=== PATIENT | female | born 1965 | race Caucasian/White ===

== ENCOUNTER 2019-11-09 08:34 | Outpatient (CLI) | payer BC, SELFPAY ==
--- NOTE | ~2019-11-09 | MR_ITS ---
EXAMINATION: MR abdomen wo/w con DATE: 11/09/2019 10:13 INDICATION: Right renal neoplasm presenting with right-sided abdominal pain TECHNIQUE: Magnetic resonance imaging (MRI) of the abdomen was performed without and with 15 mL Multi [place] intravenous contrast. Sequences included coronal T2-weighted SS-FSE, coronal and axial FS 2D-F IESTA, axial STIR FSE, axial T2-weighted SS-FSE, axial T2-weighted FS SS-FSE, axial diffusion-weighte d SE, axial dual-echo T1-weighted FSPGR, and axial and coronal T1-weighted LAVA. Postcontrast axial T 1-weighted LAVA images were obtained in a time course. Postcontrast coronal T1-weighted LAVA images w ere obtained. COMPARISON: None. FINDINGS: Heart size is normal. No pericardial or pleural effusion. Somewhat heterogeneous hepatic steatosis wi th signal dropout on opposed phase images. Status post cholecystectomy. No intra or extrahepatic bili sherrie ductal dilation. Spleen, pancreas and bilateral adrenal glands are normal. Some with heterogeneou s avid enhancement of a 1.7 cm mass at the anterior lower pole of the right kidney consistent with re nal cell carcinoma. There are few bilateral T2 hyperintense nonenhancing renal cysts the largest julienne uring 1.2 cm the left kidney. Visualized portions of the bowels including the appendix are normal. No pathologically enlarged abdominal lymphadenopathy. 5.2 cm T2 hyperintense nonenhancing right adnexal cyst which is seen on the coronal images. Normal bone marrow signal throughout. IMPRESSION: 1. 1.7 cm hyperenhancing right renal mass consistent with renal cell carcinoma. Differential would ho wever also include isolated thyroid metastasis which could also present as a hyperenhancing mass. Reviewed, dictated and finalized at location A. [employer] IMPRESSION: 1. 1.7 cm hyperenhancing right renal mass consistent with renal cell carcinoma. Differential would however also include isolated thyroid metastasis which coul d also present as a hyperenhancing mass.
[2019-11-09 09:35] LABS: Estimated Glomerular Filt Rate > 60
== END 2019-11-09 08:35 | disposition home or self-care (01) ==
PROVIDERS: PCP Pediatrics; Visit Provider Pediatrics
DX: D41.01 Neoplasm of uncertain behavior of right kidney (principal)
CPT/HCPCS: 36415; 74183; A9577

== ENCOUNTER 2019-11-16 11:53 | Outpatient (CLI) | payer BC, SELFPAY ==
--- NOTE | ~2019-11-16 | XR_ITS ---
XR abdomen/kub 1V DATE: 11/16/2019 12:22 INDICATION: Kidney calculus TECHNIQUE: AP projection, 2 views COMPARISON: 11/09/2019 MRI abdomen: 1.7 cm hyperenhancing right renal mass lesion consistent with renal carcinoma was reported FINDINGS: There is an approximately 2 mm calcification overlying the mid left kidney. No other appare nt urinary tract calcification is identified. Surgical clips, right upper quadrant, consistent with cholecystectomy. The psoas shadows are intact. No evidence of bowel obstruction. Included skeletal structures are unremarkable. IMPRESSION: Approximately 2 mm left renal probable calcified calculus Status post cholecystectomy This examination is not sensitive for detection of previously MRI reported 1.7 cm hyperenhancing righ t renal mass lesion consistent with renal carcinoma Reviewed, dictated and finalized at Location A. Reviewed, dictated and finalized at location A. IMPRESSION: Approximately 2 mm left renal probable calcified calculus Status post cholecystectomy This examination is not sensitive for detection of previously MRI reported 1.7 cm hyperenhancing right renal mass lesion consistent with renal carcinoma
== END 2019-11-16 11:54 | disposition home or self-care (01) ==
LOC: ANHIMG 12:04
PROVIDERS: Visit Provider Urology
DX: N20.0 Calculus of kidney (principal); Z90.49 Acquired absence of other specified parts of digestive tract
CPT/HCPCS: 74018

== ENCOUNTER 2019-11-23 02:19 | Day surgery (SDC) | payer BC, SELFPAY ==
[2019-11-19 09:11] VITALS: BMI 34.0
[2019-11-23] VITALS (7 sets, daily range): BP systolic 109–152; BP diastolic 76–97; PULSE 64–98; RESP 11–20; TEMP 36.3–36.7; O2SAT 98–100; BMI 34.7
--- NOTE | ~2019-11-23 | XR_ITS ---
XR abdomen/kub 1V DATE: 11/23/2019 08:31 INDICATION: Lithotripsy. Kidney calculus. TECHNIQUE: AP projection, 2 views COMPARISON: 11/16/2019 KUB FINDINGS: Again noted is a small calcification overlying the upper pole of the left kidney. Status post cholecystectomy. No evidence of bowel obstruction. The psoas shadows are intact. No visceromegaly is detected. IMPRESSION: Approximately 2 mm calcified calculus of upper pole of left kidney Status post cholecystectomy Reviewed, dictated and finalized at Location A. Reviewed, dictated and finalized at location D.
--- NOTE | 2019-11-23 09:21 | WPDHPUPDATE1 ---
History and Physical Update Update Date/Time: 11/23/19 09:21 History and Physical has been reviewed, including an updated exam of the patient. There are NO changes in the patient's condition. Risks, benefits, and alternatives have been discussed and questions answered. Patient agrees to proceed with procedure.
[2019-11-23] MEDS: LACTATED RINGERS 1,000 ML 30 ML IV CONT (09:45)
--- NOTE | 2019-11-23 09:55 | WPDANESEPPF ---
Anes - Initial Pre Proc Eval Procedure: Operation Date: 11/23/19 10:30 Proposed Procedures p Left Renal Extracorporeal Shock Wave Lithotripsy - Lionel Billingsley MD Date/Time: 11/23/19 09:55 Surgeon: Lionel Billingsley MD Pre Op Diagnosis: left renal kidney stones Patient Data Age: 54 Gender: F Height: 5 ft 1 in Weight: 83.3 kg Last Vital Signs Temp 36.7 C 11/23/19 08:30 Pulse 73 11/23/19 08:30 Resp 18 11/23/19 08:30 BP 148/85 H 11/23/19 08:30 Pulse Ox 98 11/23/19 08:30 Allergies Allergy/AdvReac Type Severity Reaction Status Date / Time ampicillin [From Unasyn] AdvReac severe Verified 11/19/19 09:12 itching hydrocodone AdvReac Itching Verified 11/19/19 09:12 sulbactam [From Unasyn] AdvReac severe Verified 11/19/19 09:12 itching Home Medications Medication Instructions Recorded Confirmed Type L.acid-L.casei-B.bif-B.jessica-FOS 1 cap PO DAILY 11/19/19 11/19/19 History [Probiotic Blend] ezetimibe [Zetia] 10 mg PO DAILY 11/19/19 11/19/19 History isosorbide mononitrate 30 mg PO DAILY 11/19/19 11/19/19 History lisinopril-hydrochlorothiazide 1 tablet PO DAILY 11/19/19 11/19/19 History metoprolol succinate 50 mg PO DAILY 11/19/19 11/19/19 History multivitamin 1 tablet PO DAILY 11/19/19 11/19/19 History simvastatin 40 mg PO DAILY 11/19/19 11/19/19 History spironolactone [Aldactone] 25 mg PO DAILY 11/19/19 11/19/19 History Patient hx anesthesia problems: none Family hx anesthesia problems: none PMFSH Past Medical History Medical History (Updated 11/23/19 @ 09:58 by Gavin Nelson MD) CAD (coronary artery disease) Hyperlipidemia Hypertension Renal cancer Thyroid cancer TIA (transient ischemic attack) Anes - Eval Final PreProcedure Day of Procedure 11/23/19 09:55 Patient weight: obese Heart: regular rate and rhythm Lungs: clear to auscultation Airway: Mallampati scale class 1 Neurological: alert and oriented Last oral intake: >/= 8 hours ASA classification: III Emergent: no Anesthetic plan: proceed Anesthesia type and monitoring: general LMA and standard monitoring Informed Consent: The patient's anesthetic plan and its attendant risks and benefits were discussed with the patient/family/POA. Questions were solicited and answers provided to the satisfaction of the patient/family/POA.
--- NOTE | 2019-11-23 10:01 | SUR.PREOP ---
0845 Pt states she has had PCN in the past without problems
[2019-11-23] MEDS: ceFAZolin 2 GM/D5W 50 ML 2 GM/50 ML BAG IVPB (10:55)
--- NOTE | 2019-11-23 11:41 | PM.PROC ---
Procedure Note - Detailed Date of procedure: 11/23/19 Pre-op diagnosis: left renal kidney stones Post-op diagnosis: same Procedure performed: Lithotripsy of left renal calculus 6 mm Description of procedure: Patient was taken the operative suite correctly identified. The left renal calculus was seen in both planes. Two thousand five hundred shocks were given. Patient tolerated procedure well without any complications taken recovery stable condition. She will follow-up about 10 days with a KUB. Anesthesia: GLMA Surgeon: Lionel Billingsley MD Drains: No Packing: No Pathology: none sent Complications: No immediate complications Condition: stable Disposition: PACU
--- NOTE | 2019-11-23 12:24 | SUR.PHASEI ---
1224; PT AWAKE AND ALERT. DENIES PAIN OR NAUSEA. READY TO SEE FAMILY.
--- NOTE | 2019-11-23 13:33 | SUR.PHASEII ---
1318; PT WALKED TO BATHROOM. GAIT STEADY. VOIDED. STATES ARGUETA COLORED.
== END 2019-11-23 13:20 | disposition home or self-care (01) ==
PROVIDERS: Visit Provider Urology
PROC: (CPT 50590; principal; 2019-11-23 10:30)
DX: N20.0 Calculus of kidney (principal); I10 Essential (primary) hypertension; E78.5 Hyperlipidemia, unspecified; I25.10 Atherosclerotic heart disease of native coronary artery without angina pectoris; Z86.73 Personal history of transient ischemic attack (TIA), and cerebral infarction without residual deficits; Z85.850 Personal history of malignant neoplasm of thyroid; E66.9 Obesity, unspecified; Z68.34 Body mass index [BMI] 34.0-34.9, adult; Z79.82 Long term (current) use of aspirin
CPT/HCPCS: 50590; 74018; J0690; J1100; J2250; J2405; J2704; J3010; J7120

== ENCOUNTER 2019-12-03 10:18 | Outpatient (CLI) | payer BC, SELFPAY ==
--- NOTE | ~2019-12-03 | XR_ITS ---
EXAMINATION: XR abdomen/kub 1V INDICATION: Ocular cysts of the kidney TECHNIQUE: Supine views of the abdomen were obtained on 2 radiographs. COMPARISON: 0829 hours and 11/16/2019 FINDINGS: A 4 mm stone projects in the lower pole of the left kidney. Cholecystectomy clips are prese nt in the right upper quadrant. There are phleboliths of the pelvis. The bowel gas pattern is normal. IMPRESSION: 1. 4 mm stone in the lower pole of the left kidney. Reviewed, dictated and finalized at location A.
== END 2019-12-03 10:19 | disposition home or self-care (01) ==
PROVIDERS: Visit Provider Urology
DX: N20.0 Calculus of kidney (principal)
CPT/HCPCS: 74018

== ENCOUNTER 2020-02-20 09:58 | Outpatient (CLI) | payer BC, SELFPAY ==
--- NOTE | ~2020-02-20 | CT_ITS ---
EXAMINATION: CT abdomen pelvis wo/w con DATE: 02/20/2020 10:51 INDICATION: Right kidney mass TECHNIQUE: Computed tomography (CT) of the abdomen was performed without intravenous contrast. CT of the abdomen and pelvis was then performed with a total of 100 mL Omnipaque 350 intravenous contrast. The dose-length product (DLP) was 1584.92 mGy-cm. Automated exposure control and iterative reconstruc tion technique were employed. COMPARISON: 02/07/2019; MRI, 11/09/2019 FINDINGS: The lung bases are clear. The heart size is normal. The gallbladder is surgically absent. T here is mild pneumobilia. The liver, spleen, pancreas, and adrenal glands are normal. There is a 2.1 cm enhancing mass in the anterior aspect of the right kidney lower pole, slightly increased in size p reviously measuring 1.7 cm. Cysts of the left kidney measure up to 1 cm. No pathologically enlarged a bdominal or pelvic lymph nodes are identified. There is a stable 5.2 cm cyst of the right ovary. Ther e is no free intraperitoneal gas or evidence of bowel obstruction. There is mild lumbar spondylosis. IMPRESSION: 1. Slight interval increase in size of the previously described right kidney mass, likely renal cell carcinoma. Reviewed, dictated and finalized at location A. IMPRESSION: 1. Slight interval increase in size of the previously described right kidney ma ss, likely renal cell carcinoma.
[2020-02-20 10:28] LABS: Estimated Glomerular Filt Rate > 60
== END 2020-02-20 09:59 | disposition home or self-care (01) ==
LOC: ANHIMG 10:00
PROVIDERS: Visit Provider Urology
DX: N28.89 Other specified disorders of kidney and ureter (principal)
CPT/HCPCS: 36415; 74178; Q9967

== ENCOUNTER 2020-04-18 11:23 | Outpatient (CLI) | payer BC, SELFPAY ==
--- NOTE | ~2020-04-18 | CT_ITS ---
EXAMINATION: CT abdomen pelvis wo/w con DATE: 04/18/2020 12:19 INDICATION: Known right renal mass with new onset abdominal pain. Nephrolithiasis. TECHNIQUE: Computed tomography (CT) of the abdomen and pelvis was performed without and with 100 mL O mnipaque-350 intravenous contrast utilizing a standard renal mass protocol. Automated exposure contro l and iterative reconstruction technique were employed. The dose-length product was 1800.36 mGy-cm. COMPARISON: 02/20/2020 FINDINGS: Lung bases are clear. Heart size is normal. No pericardial or pleural effusion. Small amount of pneum obilia likely related to prior cholecystectomy and thoracotomy with surgical clips at the gallbladder fossa. Liver is otherwise normal. Spleen, pancreas and bilateral adrenal glands are normal. 2.1 cm e nhancing mass at the anterior lower pole of the right kidney consistent with renal cell carcinoma. Th ere are couple approximately 5 mm macroscopic fat attenuation lesions, one at the upper pole of the r ight and one at the lower pole of the left kidneys consistent with of the left kidney consistent with angiomyolipomas. 1 cm nonenhancing cyst at the lower pole of the left kidney. [address] one in the upper pole of the left kidney and a few additional tiny densities in both kidneys which ar e too small to measure likely representing additional renal stones. No hydronephrosis or stones seen along the course of the ureters. No abnormal bowel wall thickening or obstruction. Appendix is normal . 5.3 cm right adnexal cyst. The uterus is not identified and has likely been surgically resected. Bl adder is normal. No free intraperitoneal gas or fluid. No pathologically enlarged abdominal or pelvic lymphadenopathy. Mild scattered degenerative skeletal changes. IMPRESSION: 1. Tiny bilateral nonobstructing renal stones the largest measuring 2 mm and the left kidney. 2. 2.1 cm enhancing right renal mass consistent with renal cell carcinoma. 3. 5.3 cm right adnexal cyst. 4. 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 Multiple angiomyolipomas can be seen in the setting of tuberous sclerosis. Reviewed, dictated and finalized at location A. IMPRESSION: 1. Tiny bilateral nonobstructing renal stones the largest measuring 2 mm and th e left kidney. 2. 2.1 cm enhancing right renal mass consistent with renal cell carcinoma. 3. 5.3 cm right adnexal cyst. 4. 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 Multiple angiom yolipomas can be seen in the setting of tuberous sclerosis.
[2020-04-18 12:10] LABS: Estimated Glomerular Filt Rate > 60
== END 2020-04-18 11:24 | disposition home or self-care (01) ==
LOC: ANHIMG 11:33
PROVIDERS: Visit Provider Nurse Practitioner Family
DX: C64.1 Malignant neoplasm of right kidney, except renal pelvis (principal); R10.11 Right upper quadrant pain; N20.0 Calculus of kidney; D35.01 Benign neoplasm of right adrenal gland
CPT/HCPCS: 36415; 74178; Q9967

== ENCOUNTER 2020-05-27 10:09 | Outpatient (CLI) | payer BC, SELFPAY ==
[2020-05-27 11:47] LABS: Basophils Absolute Auto 0.1 K/mm3 (0.0-0.1); Basophils Percent Auto 0.9 % (0.2-1.2); Eosinophils Absolute Auto 0.1 K/mm3 (0-0.3); Eosinophils Percent Auto 1.3 % (0-4.4); Hematocrit 44.8 % (37.0-47.0); Hemoglobin 15.1 g/dL (12.0-15.0); Immature Granulocyte Absolute 0.03 K/mm3 (0.00-0.031); Immature Granulocyte Percent A 0.3 % (0-0.5); Lymphocytes Absolute Auto 2.82 K/mm3 (0.9-3.2); Lymphocytes Percent Auto 30.3 % (18.3-44.2); Mean Corpuscular HGB Conc 33.7 g/dl (32-36); Mean Corpuscular Hemoglobin 29.8 pg (26-34); Mean Corpuscular Volume 88.5 fl (80-100); Mean Platelet Volume 11.3 fl (7.4-10.4); Monocytes Absolute Auto 0.7 K/mm3 (0.1-0.6); Monocytes Percent Auto 7.3 % (2.6-8.5); Neutrophils Absolute Auto 5.6 K/mm3 (1.3-6.7); Neutrophils Percent Auto 59.9 % (45.5-73.1); Platelet Count Result 242 k/mm3 (150-375); Red Blood Count 5.06 M/mm3 (4.2-5.4); Red Cell Distribution Width 11.9 % (11.5-14.5); White Blood Count 9.3 K/mm3 (4.5-10.0)
[2020-05-27 11:53] LABS: INR 1.1; Prothrombin Time 13.9 Seconds (11.1-14.7)
[2020-05-27 11:54] LABS: Partial Thromboplastin Time 27.5 SECONDS (22.3-36.8)
[2020-05-27 12:51] LABS: Alanine Aminotransferase 37 U/L (4-35); Albumin Level 4.5 g/dL (3.5-5.1); Alkaline Phosphatase 68 U/L (38-126); Anion Gap 7 mmol/L (8-16); Aspartate Amino Transferase 32 U/L (14-36); Bilirubin,Total 1.1 mg/dL (0.2-1.3); Blood Urea Nitrogen 21 mg/dL (7-17); Calcium 9.6 mg/dL (8.4-10.2); Carbon Dioxide 29 mmol/L (22-30); Chloride 101 mmol/L (98-107); Estimated Glomerular Filt Rate 58; Glucose 107 mg/dL (65-105); Potassium 4.4 mmol/L (3.4-5.0); Sodium 137 mmol/L (137-145)
== END 2020-05-27 10:10 | disposition home or self-care (01) ==
LOC: ANHSURGERY 10:12
PROVIDERS: Visit Provider Urology
DX: C64.9 Malignant neoplasm of unspecified kidney, except renal pelvis (principal)
CPT/HCPCS: 36415; 80053; 85025; 85610; 85730; 87086

== ENCOUNTER 2020-06-07 01:08 | Outpatient (CLI) | payer BC, SELFPAY ==
[2020-06-07 17:59] LABS: SARS-CoV-2 RNA PCR Negative
== END 2020-06-07 01:09 | disposition home or self-care (01) ==
LOC: ANHCOVIDDT 01:09
PROVIDERS: Visit Provider Urology
DX: Z01.812 Encounter for preprocedural laboratory examination (principal); Z20.828 Contact with and (suspected) exposure to other viral communicable diseases
CPT/HCPCS: 87635; C9803; U0003

== ENCOUNTER 2020-06-10 16:09 | Inpatient (IN) | payer BC, SELFPAY ==
[2020-05-27 10:31] VITALS: BMI 35.9
[2020-05-27 11:16] VITALS: BP 142/80; PULSE 64; RESP 18; TEMP 36.9; O2SAT 99
--- NOTE | 2020-06-08 10:26 | WPDANESEPP ---
Anes - Eval Pre Procedure Procedure: Operation Date: 06/10/20 07:30 Proposed Procedures p Robotic Assisted Right Partial Nephrectomy - Lionel Billingsley MD Date/Time: 06/08/20 10:26 Pre Op Diagnosis: Right Renal Mass Patient Data Age: 55 Gender: F Height: 1.55 m Weight: 86.3 kg Last Vital Signs Temp 36.9 C 05/27/20 11:16 Pulse 64 05/27/20 11:16 Resp 18 05/27/20 11:16 BP 142/80 H 05/27/20 11:16 Pulse Ox 99 05/27/20 11:16 Allergies Allergy/AdvReac Type Severity Reaction Status Date / Time ampicillin [From Unasyn] AdvReac severe Verified 05/27/20 10:24 itching hydrocodone AdvReac Itching Verified 05/27/20 10:22 sulbactam [From Unasyn] AdvReac severe Verified 05/27/20 10:24 itching vancomycin AdvReac Itching Verified 05/27/20 10:24 Home Medications Medication Instructions Recorded Confirmed Type ezetimibe [Zetia] 10 mg PO QAM 11/19/19 05/27/20 History isosorbide mononitrate 30 mg PO QAM 11/19/19 05/27/20 History lisinopril-hydrochlorothiazide 1 tablet PO QAM 11/19/19 05/27/20 History metoprolol succinate 50 mg PO QAM 11/19/19 05/27/20 History simvastatin 40 mg PO HS 11/19/19 05/27/20 History spironolactone [Aldactone] 25 mg PO QAM 11/19/19 05/27/20 History amlodipine 5 mg PO QAM 05/27/20 05/27/20 History aspirin 81 mg PO DAILY 05/27/20 05/27/20 History Patient hx anesthesia problems: none Family hx anesthesia problems: none PMFSH Past Medical History Medical History CAD (coronary artery disease) Hyperlipidemia Hypertension Renal cancer Thyroid cancer TIA (transient ischemic attack) Social History Social History Smoking status: Never smoker Substance use: never Spiritual care concerns: No Exam Day of Procedure 06/08/20 10:26
--- NOTE | 2020-06-09 11:49 | WPDANESEPPF ---
Anes - Initial Pre Proc Eval Procedure: Operation Date: 06/10/20 07:30 Proposed Procedures p Robotic Assisted Right Partial Nephrectomy - Lionel Billingsley MD Date/Time: 06/09/20 11:49 Surgeon: Lionel Billingsley MD Pre Op Diagnosis: Right Renal Mass Patient Data Age: 55 Gender: F Height: 1.55 m Weight: 86.3 kg Last Vital Signs Temp 36.9 C 05/27/20 11:16 Pulse 64 05/27/20 11:16 Resp 18 05/27/20 11:16 BP 142/80 H 05/27/20 11:16 Pulse Ox 99 05/27/20 11:16 Allergies Allergy/AdvReac Type Severity Reaction Status Date / Time ampicillin [From Unasyn] AdvReac severe Verified 05/27/20 10:24 itching hydrocodone AdvReac Itching Verified 05/27/20 10:22 sulbactam [From Unasyn] AdvReac severe Verified 05/27/20 10:24 itching vancomycin AdvReac Itching Verified 05/27/20 10:24 Home Medications Medication Instructions Recorded Confirmed Type ezetimibe [Zetia] 10 mg PO QAM 11/19/19 05/27/20 History isosorbide mononitrate 30 mg PO QAM 11/19/19 05/27/20 History lisinopril-hydrochlorothiazide 1 tablet PO QAM 11/19/19 05/27/20 History metoprolol succinate 50 mg PO QAM 11/19/19 05/27/20 History simvastatin 40 mg PO HS 11/19/19 05/27/20 History spironolactone [Aldactone] 25 mg PO QAM 11/19/19 05/27/20 History amlodipine 5 mg PO QAM 05/27/20 05/27/20 History aspirin 81 mg PO DAILY 05/27/20 05/27/20 History Patient hx anesthesia problems: none Family hx anesthesia problems: none [facility] Past Medical History Medical History (Updated 06/10/20 @ 06:43 by Preston Brink DO) CAD (coronary artery disease) mild - see on cath years ago. No intervention necessary. Negative stress test 05/23/2020 Carotid stenosis 65% occlusion on left side. No intervention deemed necessary at this point, just monitoring. Hyperlipidemia Hypertension Renal cancer Thyroid cancer TIA (transient ischemic attack) Social History Social History Smoking status: Never smoker Alcohol use details: FEW DRINKS/YEAR Substance use: never Living arrangements: with family Spiritual care concerns: No Anes - Eval Final PreProcedure Day of Procedure 06/09/20 11:49 Patient weight: obese Heart: regular rate and rhythm Lungs: clear to auscultation and normal air movement Airway: Mallampati scale class II Neurological: alert and oriented Last oral intake: >/= 8 hours ASA classification: III Emergent: no Anesthetic plan: proceed Anesthesia type and monitoring: general ETT and standard monitoring Informed Consent: The patient's anesthetic plan and its attendant risks and benefits were discussed with the patient/family/POA. Questions were solicited and answers provided to the satisfaction of the patient/family/POA.
[2020-06-10] VITALS (14 sets, daily range): BP systolic 98–148; BP diastolic 59–80; PULSE 54–98; RESP 10–20; TEMP 36.4–37.3; O2SAT 95–100
--- NOTE | ~2020-06-10 | CT_ITS ---
EXAMINATION: CTA chest PE protocol DATE: 06/13/2020 10:17 INDICATION: Postoperative shortness of breath and chest pain. TECHNIQUE: Computed tomography (CT) pulmonary angiogram of the chest was performed with 100 mL Omnipa que-350 intravenous contrast. Additional 3D reconstructions utilizing coronal maximum intensity proje ction (MIP) were performed. Automated exposure control and iterative reconstruction technique were em ployed. The dose-length product was 844.73 mGy-cm. COMPARISON: None FINDINGS: Excellent contrast opacification of the pulmonary arteries. There is mild streak artifact from dense contrast in the superior vena cava and right atrium. Mild scattered respiratory motion artifact which does not significantly limit evaluation. Lung volumes are small. Small bilateral pleural effusions w ith dependent atelectasis in the bilateral lower lobes, right greater than left. Heart size is normal . No pericardial effusion. Thoracic aorta is normal in caliber with no dissection. No pathologically enlarged thoracic lymphadenopathy. Postoperative changes recent partial nephrectomy along the anterio r margin of the lower pole of the right kidney. The cephalad tip of a surgical drain is seen in the r egion of Morison's pouch. Cholecystectomy clips the gallbladder fossa consistent with prior cholecyst ectomy. Small amount of likely postoperative gas and fluid in the right upper quadrant of the abdomen . Mild thoracic spondylosis. IMPRESSION: 1. No pulmonary embolism. 2. Small lung volumes with small bilateral pleural effusions and dependent compressive atelectasis in the bilateral lower lobes. 3. Postoperative changes of partial right nephrectomy. Reviewed, dictated and finalized at location A. IMPRESSION: 1. No pulmonary embolism. 2. Small lung volumes with small bilateral pleural effusions and dependent comp ressive atelectasis in the bilateral lower lobes. 3. Postoperative changes of partial right nephrectomy.
[2020-06-10] MEDS: LACTATED RINGERS 1,000 ML 30 ML IV CONT ×2 (06:57→13:48)
--- NOTE | 2020-06-10 07:00 | WPDHPUPDATE1 ---
History and Physical Update Update Date/Time: 06/10/20 07:00 History and Physical has been reviewed, including an updated exam of the patient. There are NO changes in the patient's condition. Risks, benefits, and alternatives have been discussed and questions answered. Patient agrees to proceed with procedure. Proceed with robotic right partial nephrectomy
[2020-06-10] MEDS: ceFAZolin 2 GM/D5W 50 ML 2 GM/50 ML BAG IVPB (07:30)
[2020-06-10] MEDS: HEMOSTATIC MATRIX (SURGIFLO with THROMBIN) KIT 1 KIT XX (11:26)
[2020-06-10] MEDS: ceFAZolin SODIUM 1 GM VIAL IV PUSH (13:00)
--- NOTE | 2020-06-10 13:22 | P.OP_ITS ---
Procedure Note - Detailed Date of procedure: 06/10/20 Pre-op diagnosis: Right Renal Mass Post-op diagnosis: same Procedure performed: Robotic assisted right partial nephrectomy Description of procedure: Patient is taken the operative suite and correctly identified. Once anesthesia was obtained she was placed in the Kube disposition right side up. [place] catheter had been placed. She was prepped and draped usual sterile fashion. All pressure points had been padded and she was been secured nicely. An OG had been placed as well as an axillary roll. The incision was made just lateral to the umbilicus and carried down to the rectus fascia. Veress needle was inserted in the abdomen was insufflated 15 mmHg pressure. Camera port trocar was placed in direct vision. We then placed our working ports in the appropriate locations. Two working ports were then placed for the assistance. And we eventually needed a 5 mm port to secure the liver. The robot was docked. Started by reflecting the colon medially and Coke arise in the duodenum. We identified the ureter and lifted the kidney off the psoas muscle. We traced the ureter up to the renal pelvis area. The hilar area was identified. The artery was located fairly well posterior to the renal vein. We placed a vessel loop around that. We are unable to get a vessel loop around the vein at this time. We then went ahead and freed up the kidney and opened wrote his fascia. Tumor was visualized. It had quite a bit of fat around it. All this was then removed. The tumor was demarcated using ultrasound. It was noted that the tumor was very near to the hilar area where the renal pelvis was. There also was a vein that was exiting the kidney just inferior to the renal mass. Once things were demarcated we went ahead and placed bulldogs on the renal artery and vein. We then went ahead and excised the tumor circumferentially. It appeared to have a nice margin. We then over sewed vessel using V lock suture. We closed the capsule using 0 Vicryl. There appeared to be good hemostasis at termination procedure. We placed to seal, Surgicel, and FloSeal over the close capsular area. We then reapproximated anterior [place] fascia. A Tony-Nagel drain was then placed through the 2nd port site. This was secured. All lap, needle counts was correct. The specimen had been placed in an Endo-Catch bag. The robot was undocked and the specimen was then brought out through midline incision. The midline incision was then closed using 0 Vicryl. Subcuticular stitches were then placed. Patient tolerated procedure well without any complications and was taken recovery room stable condition. It should be noted that the gonadal vessel was transected and clipped. Anesthesia: GETA Surgeon: Lionel Billingsley MD Estimated blood loss (mL): 500 Drains: Yes Packing: No Pathology: yes Complications: No immediate complications Condition: stable Disposition: PACU
[2020-06-10] MEDS: fentaNYL CITRATE INJ (*CRX) 100 MCG/2 ML VIAL 25 MCG IV PUSH ×8 (13:59→15:21)
--- NOTE | 2020-06-10 15:53 | ADMGEN ---
This patient, Sofya Daigle, was admitted to -. Patient/family oriented to hospital policies and general routines including ID bracelet, bed and alarms, visiting hours, pain management, procedures, bathroom and other care routines, personal items, smoking policy, room service/diet, and visiting hours. Valuables list has been completed. Information on how to activate the Rapid Response Team has been discussed. Patient/Family are encouraged to report perceived risks to care and to ask questions if they do not understand what they are told or what they should do.
[2020-06-10 16:41] LABS: Hematocrit 34.8 % (37.0-47.0); Hemoglobin 11.7 g/dL (12.0-15.0)
[2020-06-10] MEDS: DEXTROSE 5%/LACTATED RINGERS 1,000 ML 150 ML IV CONT (16:49)
[2020-06-10] MEDS: DOCUSATE SODIUM 100 MG CAPSULE PO (16:51)
[2020-06-10 16:54] LABS: Anion Gap 8 mmol/L (8-16); Blood Urea Nitrogen 20 mg/dL (7-17); Calcium 8.3 mg/dL (8.4-10.2); Carbon Dioxide 26 mmol/L (22-30); Chloride 103 mmol/L (98-107); Estimated CRCL calculation 53 ml/min; Estimated Glomerular Filt Rate 52; Glucose 151 mg/dL (65-105); Potassium 4.8 mmol/L (3.4-5.0); Sodium 137 mmol/L (137-145)
[2020-06-10] MEDS: MORPHINE SULFATE (*CRX) 2 MG/ML INJ 1 MG IV PUSH (17:34)
[2020-06-10] MEDS: ONDANSETRON INJ 4 MG/2 ML VIAL IV PUSH (18:40)
[2020-06-10] MEDS: HYDROmorphone HCL INJ (*CRX) 1 MG/ML SYR 0.5 MG IV PUSH (20:28)
[2020-06-10] MEDS: SIMVASTATIN 20 MG TABLET 40 MG PO (21:39)
[2020-06-11] VITALS (10 sets, daily range): BP systolic 100–145; BP diastolic 58–71; PULSE 62–103; RESP 16–20; TEMP 36.8–37.7; O2SAT 92–99
[2020-06-11] MEDS: HYDROmorphone HCL INJ (*CRX) 1 MG/ML SYR 0.5 MG IV PUSH ×3 (00:22→09:19)
[2020-06-11] MEDS: DEXTROSE 5%/LACTATED RINGERS 1,000 ML 150 ML IV CONT ×4 (00:29→21:28)
[2020-06-11 06:30] LABS: Basophils Absolute Auto 0.1 K/mm3 (0.0-0.1); Basophils Percent Auto 0.3 % (0.2-1.2); Eosinophils Absolute Auto 0.1 K/mm3 (0-0.3); Eosinophils Percent Auto 0.7 % (0-4.4); Hematocrit 31.4 % (37.0-47.0); Hemoglobin 10.6 g/dL (12.0-15.0); Immature Granulocyte Absolute 0.09 K/mm3 (0.00-0.031); Immature Granulocyte Percent A 0.6 % (0-0.5); Lymphocytes Absolute Auto 1.19 K/mm3 (0.9-3.2); Lymphocytes Percent Auto 7.4 % (18.3-44.2); Mean Corpuscular HGB Conc 33.8 g/dl (32-36); Mean Corpuscular Hemoglobin 29.4 pg (26-34); Mean Platelet Volume 11.1 fl (7.4-10.4); Monocytes Absolute Auto 1.4 K/mm3 (0.1-0.6); Monocytes Percent Auto 8.7 % (2.6-8.5); Neutrophils Absolute Auto 13.2 K/mm3 (1.3-6.7); Neutrophils Percent Auto 82.3 % (45.5-73.1); Platelet Count Result 185 k/mm3 (150-375); Red Blood Count 3.61 M/mm3 (4.2-5.4); Red Cell Distribution Width 11.8 % (11.5-14.5)
[2020-06-11 06:42] LABS: Anion Gap 8 mmol/L (8-16); Blood Urea Nitrogen 16 mg/dL (7-17); Carbon Dioxide 25 mmol/L (22-30); Chloride 101 mmol/L (98-107); Estimated CRCL calculation 58 ml/min; Estimated Glomerular Filt Rate 58; Glucose 142 mg/dL (65-105); Potassium 4.3 mmol/L (3.4-5.0); Sodium 134 mmol/L (137-145)
--- NOTE | 2020-06-11 07:58 | WPDUROPN2 ---
Progress Note: A&P Assessment and Plan (1) Right renal mass: Code(s): N28.89 - Other specified disorders of kidney and ureter Status: Acute Assessment and Plan: Postop day 1. White count slightly elevated at 16,000 thousand. Will continue to monitor. He will increase activity and encourage incentive spirometer. Hemodynamically stable. Subjective Subjective Date/Time Seen: 06/11/20 07:58 Post Op day: 1 (Robotic assisted right partial nephrectomy) Principal diagnosis: Right renal mass Interval history: Postoperative day 1. Sofya overall is doing well but does complain of some right flank discomfort. Review of Systems Review of Systems: All systems reviewed & are unremarkable except as noted in HPI and below Exam Const: General: uncomfortable HENMT: General nose exam: Normal nares present Resp: Effort & Inspection: normal respiratory effort Cardio: Rhythm: regular rhythm GI: Other: Abdomen soft nontender nondistended Urinary Catheter: Urinary Catheter: patent and draining and urine clear Skin: General skin exam: normal color Neuro: Speech: normal speech Objective Data Vital Signs Vital Signs: Vital Signs - 24 hr 06/10/20 13:48 06/10/20 14:00 06/10/20 14:15 Temperature 37.3 C Pulse Rate 63 60 63 Respiratory Rate 10 L 11 L 11 L Blood Pressure 98/62 L 112/72 109/69 Pulse Oximetry 100 99 95 06/10/20 14:30 06/10/20 14:45 06/10/20 15:00 Temperature Pulse Rate 77 65 60 Respiratory Rate 11 L 12 10 L Blood Pressure 114/79 131/73 131/73 Pulse Oximetry 98 97 95 06/10/20 15:15 06/10/20 15:38 06/10/20 15:53 Temperature 36.4 C 36.4 C Pulse Rate 80 70 68 Respiratory Rate 17 16 16 Blood Pressure 124/72 112/59 L 108/59 L Pulse Oximetry 100 100 100 06/10/20 16:23 06/10/20 17:45 06/10/20 17:51 Temperature 36.4 C 36.6 C Pulse Rate 72 78 Respiratory Rate 16 17 Blood Pressure 106/60 133/73 Pulse Oximetry 99 100 100 06/10/20 22:00 06/11/20 02:00 06/11/20 05:00 Temperature 37.3 C 36.8 C 37.7 C H Pulse Rate 98 98 Respiratory Rate 20 16 Blood Pressure 148/64 H 112/58 L Pulse Oximetry 98 98 06/11/20 06:00 Temperature 37.2 C Pulse Rate 103 H Respiratory Rate 20 Blood Pressure 145/65 H Pulse Oximetry 99 Intake/Output Intake/Output: Intake & Output 06/08/20 06/09/20 06/10/20 06/11/20 23:59 23:59 23:59 23:59 Intake Total 900 1075 Output Total 490 1600 Balance 410 -525 Meds/Results Medications: Active Medications Generic Name Dose Route Start Last Admin Trade Name Freq PRN Reason Stop Dose Admin Hydrocodone Bitart/Acetaminophen 1 tab 06/11/20 05:00 [place] 5-325 Mg PO Q4H PRN Pain Rated 1-3 Hydrocodone Bitart/Acetaminophen 2 tab 06/11/20 05:00 [place] 5-325 Mg PO Q4H PRN Pain Rated 4-6 Amlodipine Besylate 5 mg 06/11/20 09:00 Norvasc PO QAM [facility] Cephalexin HCl 500 mg 06/11/20 18:00 Keflex Capsule PO Q6HR GUNNER Docusate Sodium 100 mg 06/10/20 17:00 06/10/20 16:51 Colace Capsule PO 100 mg BID GUNNER Administration Hydrochlorothiazide 12.5 mg 06/11/20 09:00 Hydrochlorothiazide PO 07/11/20 09:01 QAM GUNNER Hydromorphone HCl 0.5 mg 06/10/20 15:38 06/11/20 04:18 Dilaudid Inj IV PUSH 0.5 mg Q4H PRN Administration Pain Rated 7-10 Dextrose/Lactated Ringer's 1,000 mls @ 150 mls/hr 06/10/20 15:38 06/11/20 00:29 Dextrose 5%/Lactated Ringers IV CONT 150 mls/hr .Q6H40M GUNNER Administration Cefazolin Sodium 1 gm in 50 mls @ 100 mls/hr 06/10/20 21:00 06/11/20 05:12 Ancef 1 Gm/D5w 50 Ml Pm IVPB 06/11/20 13:29 100 mls/hr Q8H GUNNER Administration Isosorbide Mononitrate 30 mg 06/11/20 09:00 Imdur PO QAM GUNNER Lisinopril 10 mg 06/11/20 09:00 Prinivil PO 07/11/20 09:01 QAM GUNNER Metoprolol Succinate 50 mg 06/11/20 09:00 Toprol Xl PO QAM GUNNER Morphine Sulfate 1 mg 06/10/20 15:38 06/10/20 17:34 Morphine Sul
--- NOTE | 2020-06-11 08:41 | WPDANESPN ---
Anes - Prog Note Post-Op Date/Time: 06/11/20 08:41 Cardiovascular status: normal Respiratory status: normal Airway patency: baseline Mental status: baseline Post-Op hydration status: normal Vital Signs: Last Vital Signs Temp 37.2 C 06/11/20 06:00 Pulse 103 H 06/11/20 06:00 Resp 20 06/11/20 06:00 BP 145/65 H 06/11/20 06:00 Pulse Ox 99 06/11/20 06:00 Pain Score (VAS): 0 I/O: Intake & Output 06/10/20 06/11/20 06/11/20 23:59 07:59 15:59 Intake Total 250 2125 Output Total 350 1635 Balance -100 490 Laboratory Tests 06/11/20 06:01 06/11/20 06:01 06/10/20 06/10/20 06/11/20 16:36 16:36 06:01 WBC 16.0 H RBC 3.61 L Hgb 11.7 L D 10.6 L Hct 34.8 L 31.4 L MCV 87.0 MCH 29.4 MCHC 33.8 RDW 11.8 Plt Count 185 MPV 11.1 H Immature Gran % (Auto) 0.6 H Neut % (Auto) 82.3 H Lymph % (Auto) 7.4 L [place] % (Auto) 8.7 H Eos % (Auto) 0.7 Baso % (Auto) 0.3 Lymph # (Auto) 1.19 [place] # (Auto) 1.4 H Eos # (Auto) 0.1 Baso # (Auto) 0.1 Abs Immat Gran (auto) 0.09 H Absolute Neuts (auto) 13.2 H Absolute Nucleated RBC 0.0 Nucleated RBC % 0.0 Sodium 137 Potassium 4.8 Chloride 103 Carbon Dioxide 26 Anion Gap 8 BUN 20 H Creatinine 1.10 H Estim Creat Clear Calc 53 Estimated GFR 52 L Glucose 151 H Calcium 8.3 L 06/11/20 06:01 WBC RBC Hgb Hct MCV MCH MCHC RDW Plt Count MPV Immature Gran % (Auto) Neut % (Auto) Lymph % (Auto) [place] % (Auto) Eos % (Auto) Baso % (Auto) Lymph # (Auto) [place] # (Auto) Eos # (Auto) Baso # (Auto) Abs Immat Gran (auto) Absolute Neuts (auto) Absolute Nucleated RBC Nucleated RBC % Sodium 134 L Potassium 4.3 Chloride 101 Carbon Dioxide 25 Anion Gap 8 BUN 16 Creatinine 1.00 Estim Creat Clear Calc 58 Estimated GFR 58 L Glucose 142 H Calcium 8.0 L Post-procedural complaints: none Patient Feedback: Patient satisfied with anesthetic care.
[2020-06-11] MEDS: ONDANSETRON INJ 4 MG/2 ML VIAL IV PUSH (09:25)
[2020-06-11] MEDS: DOCUSATE SODIUM 100 MG CAPSULE PO ×2 (10:17→17:33)
[2020-06-11] MEDS: ISOSORBIDE MONONITRATE 30 MG TAB.ER.24H PO (10:18)
[2020-06-11] MEDS: SPIRONOLACTONE 25 MG TABLET PO (10:18)
[2020-06-11] MEDS: hydroCHLOROthiazide 12.5 MG CAPSULE PO (10:19)
[2020-06-11] MEDS: METOPROLOL SUCCINATE EXT REL 50 MG TABCR PO (10:19)
[2020-06-11] MEDS: lisinopriL 10 MG TABLET PO (10:20)
[2020-06-11] MEDS: amLODIPine BESYLATE 5 MG TABLET PO (10:20)
[2020-06-11] MEDS: HYDROcodone/acetaminophen (*CRX) 5-325 MG TABLET 2 TAB PO ×3 (13:17→21:27)
[2020-06-11] MEDS: CEPHALEXIN 500 MG CAPSULE PO (17:33)
[2020-06-11] MEDS: SIMVASTATIN 20 MG TABLET 40 MG PO (21:28)
[2020-06-12] MEDS: CEPHALEXIN 500 MG CAPSULE PO ×5 (00:16→23:37)
[2020-06-12] MEDS: HYDROcodone/acetaminophen (*CRX) 5-325 MG TABLET 2 TAB PO ×3 (02:10→20:31)
[2020-06-12] MEDS: DEXTROSE 5%/LACTATED RINGERS 1,000 ML 150 ML IV CONT (04:09)
[2020-06-12 06:00] VITALS: BP 116/58; PULSE 90; RESP 20; TEMP 37.2; O2SAT 98
[2020-06-12 06:49] LABS: Hematocrit 27.2 % (37.0-47.0); Hemoglobin 8.9 g/dL (12.0-15.0); Mean Corpuscular HGB Conc 32.7 g/dl (32-36); Mean Corpuscular Hemoglobin 29.6 pg (26-34); Mean Corpuscular Volume 90.4 fl (80-100); Mean Platelet Volume 11.3 fl (7.4-10.4); Platelet Count Result 162 k/mm3 (150-375); Red Blood Count 3.01 M/mm3 (4.2-5.4); Red Cell Distribution Width 11.9 % (11.5-14.5); White Blood Count 13.3 K/mm3 (4.5-10.0)
[2020-06-12 07:13] LABS: Anion Gap 3 mmol/L (8-16); Blood Urea Nitrogen 11 mg/dL (7-17); Calcium 8.1 mg/dL (8.4-10.2); Carbon Dioxide 33 mmol/L (22-30); Chloride 98 mmol/L (98-107); Estimated CRCL calculation 49 ml/min; Estimated Glomerular Filt Rate 47; Glucose 136 mg/dL (65-105); Potassium 3.8 mmol/L (3.4-5.0); Sodium 134 mmol/L (137-145)
[2020-06-12] MEDS: HYDROcodone/acetaminophen (*CRX) 5-325 MG TABLET 1 TAB PO (07:41)
--- NOTE | 2020-06-12 07:55 | WPDUROPN2 ---
Progress Note: A&P Assessment and Plan (1) Renal cell carcinoma: Code(s): C64.9 - Malignant neoplasm of unspecified kidney, except renal pelvis Status: Acute Additional Plan Postoperative day 2. Robotic assisted right partial nephrectomy. Doing much better today. Vital signs are stable and afebrile. Remove Montgomery this morning. Most likely remove MATTHEW at lunch time. Increase ambulation. Possible discharge home later today or in a.m.. Pathology revealed renal cell carcinoma with negative margins. Discussed with Sofya today. Subjective Subjective Date/Time Seen: 06/12/20 07:55 Post Op day: 2 (Robotic assisted right partial nephrectomy) Principal diagnosis: renal cell carcinoma Interval history: postoperative day 2. Doing much better. White count has improved to 13,000 thousand. Hemoglobin slightly decreased to the 0.9. Hemodynamically stable. Right flank pain has decreased. Review of Systems Review of Systems: All systems reviewed & are unremarkable except as noted in HPI and below Exam Const: General: comfortable Eyes: General: appearance normal, both eyes and all related structures Resp: Effort & Inspection: normal respiratory effort and able to speak in complete sentences Cardio: Rate: regular rate GI: Inspection: non-distended GI Palp: Yes Soft to palpation and No Guarding due to palpation present (GI) Objective Data Vital Signs Vital Signs: Vital Signs - 24 hr 06/11/20 09:23 06/11/20 10:19 06/11/20 11:32 Temperature 36.9 C Pulse Rate 90 100 Respiratory Rate 18 Blood Pressure 138/71 Pulse Oximetry 99 96 06/11/20 14:00 06/11/20 22:00 06/11/20 22:31 Temperature 37.4 C 37.5 C Pulse Rate 96 87 62 Respiratory Rate 18 16 Blood Pressure 111/59 L 100/60 Pulse Oximetry 93 94 92 06/12/20 06:00 Temperature 37.2 C Pulse Rate 90 Respiratory Rate 20 Blood Pressure 116/58 L Pulse Oximetry 98 Intake/Output Intake/Output: Intake & Output 06/09/20 06/10/20 06/11/20 06/12/20 23:59 23:59 23:59 23:59 Intake Total 900 5765 1455 Output Total 490 4705 40 Balance 410 1060 1415 Meds/Results Medications: Active Medications Generic Name Dose Route Start Last Admin Trade Name Freq PRN Reason Stop Dose Admin Hydrocodone Bitart/Acetaminophen 1 tab 10/07/20 05:00 06/12/20 07:41 [place] 5-325 Mg PO 1 tab Q4H PRN Administration Pain Rated 1-3 Hydrocodone Bitart/Acetaminophen 2 tab 06/11/20 05:00 06/12/20 02:10 Hydrocodone/Acetaminophen (*Crx) 5-325 Mg Tablet PO 2 tab Q4H PRN Administration Pain Rated 4-6 Amlodipine Besylate 5 mg 06/11/20 09:00 06/11/20 10:20 Norvasc PO 5 mg QAM GUNNER Administration Cephalexin HCl 500 mg 06/11/20 18:00 06/12/20 06:37 Keflex Capsule PO 500 mg Q6HR GUNNER Administration Docusate Sodium 100 mg 06/10/20 17:00 06/11/20 17:33 Colace Capsule PO 100 mg BID GUNNER Administration Hydrochlorothiazide 12.5 mg 06/11/20 09:00 06/11/20 10:19 Hydrochlorothiazide PO 07/11/20 09:01 12.5 mg QAM GUNNER Administration Hydromorphone HCl 0.5 mg 06/10/20 15:38 06/11/20 09:19 Dilaudid Inj IV PUSH 0.5 mg Q4H PRN Administration Pain Rated 7-10 Dextrose/Lactated Ringer's 1,000 mls @ 150 mls/hr 06/10/20 15:38 06/12/20 06:39 Dextrose 5%/Lactated Ringers IV CONT 150 mls/hr .Q6H40M GUNNER Infusion Isosorbide Mononitrate 30 mg 06/11/20 09:00 06/11/20 10:18 Imdur PO 30 mg QAM GUNNER Administration Lisinopril 10 mg 06/11/20 09:00 06/11/20 10:20 Prinivil PO 07/11/20 09:01 10 mg QAM GUNNER Administration Metoprolol Succinate 50 mg 06/11/20 09:00 06/11/20 10:19 Toprol Xl PO 50 mg QAM GUNNER Administration Morphine Sulfate 1 mg 06/10/20 15:38 06/10/20 17:34 Morphine Sulfate Inj (*Crx) IV PUSH 1 mg Q2H PRN Administration Pain Rated 4-6 Naloxone HCl 0.1 mg 06/10/20 15:38 Narcan IV PUSH Q2M PRN Opiate Reversal Ondansetr
[2020-06-12 08:00] VITALS: BP 104/66; PULSE 90; RESP 20; O2SAT 92
[2020-06-12 09:03] VITALS: O2SAT 92
[2020-06-12] MEDS: SODIUM CHLORIDE 0.9% IV 1,000 ML 999 ML IV CONT (09:15)
[2020-06-12] MEDS: METOPROLOL SUCCINATE EXT REL 50 MG TABCR PO (09:30)
--- NOTE | 2020-06-12 11:42 | PM.IMCN ---
Assessment and Plan Assessment and plan (1) Hypertension: Code(s): I10 - Essential (primary) hypertension Status: Acute Assessment and Plan: blood pressure low this a.m. and responded to fluid bolus. thought secondary to recent surgery and possibly some blood loss. 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 monitor pressure. Patient has a blood pressure cuff at home and will be able to monitor when she is discharged which I anticipate will probably be tomorrow (2) Renal cell carcinoma: Code(s): C64.9 - Malignant neoplasm of unspecified kidney, except renal pelvis Status: Acute Assessment and Plan: pathology of lesion displays containment within the kidney and margins free of disease (3) Hyperlipidemia: Code(s): E78.5 - Hyperlipidemia, unspecified Status: Acute Assessment and Plan: continue her statin and ezetimibe. (4) DVT prophylaxis: Code(s): Z29.9 - Encounter for prophylactic measures, unspecified Status: Acute Assessment and Plan: mechanical per urology HPI Data of Consult Consult date: 06/12/20 Requesting Physician: Lionel Billingsley MD Primary Care Provider: Chuck Belle Consult Narrative Narrative: Date of visit 06/12 1130 Sofya Daigle is a 55 year old hypertensive female who underwent robotic assisted partial nephrectomy for renal cell mass right kidney 06/10. This a.m. prior to taking her medications her systolic pressure was in the 90s and she was feeling weak and lightheaded. She has had hypertension for number of years and had a preop stress test with her clubhouse manager 2 weeks prior to surgery which was reportedly normal. She denies any chest pain palpitation or shortness of breath. At present time after IV hydration and holding most of her antihypertensives she feels much better Review of Systems Review of Systems: Narrative: constitutional she said she has gained about 15-20 lb over the last several months with inactivity with the Covid pandemic and not working Eye no double vision scotoma mouth no pharyngitis laryngitis pulmonary no shortness breath wheezing or cough CV no palpitations or chest pain and recent negative stress test GI no melena hematochezia diarrhea no dysuria no hematuria Montgomery catheter in place muscle skeletal no particular joint discomfort integument no skin breakdown rashes neuropsych no seizures no syncope [facility] Past Medical History Medical History (Updated 06/12/20 @ 11:54 by Jim Read MD) CAD (coronary artery disease) mild - see on cath years ago. No intervention necessary. Negative stress test 05/23/2020 Carotid stenosis 65% occlusion on left side. No intervention deemed necessary at this point, just monitoring. Hyperlipidemia Hypertension Renal cancer Thyroid cancer TIA (transient ischemic attack) Ulnar nerve entrapment at elbow Surgical History Surgical History (Updated 06/12/20 @ 11:54 by Jim Read MD) H/O arthroscopic knee surgery H/O hysterectomy for benign disease History of cholecystectomy History of thyroidectomy, subtotal Previous section Social History Social History Smoking status: Never smoker Alcohol use details: FEW DRINKS/YEAR Substance use: never Living arrangements: with family Gender identity (if verbalized by the patient): Female Spiritual care concerns: No Meds Home Medications and Allergies Home Medications Medication Instructions Recorded Confirmed Type ezetimibe [Zetia] 10 mg PO QAM 11/19/19 06/10/20 History isosorbide mononitrate 30 mg PO QAM 11/19/19 06/10/20 History lisinopril-hydrochlorothiazide 1 tablet PO QAM 11/19/19 06/10/20 History metoprolol succinate 50 mg PO QAM 11/19/19 06/10/20
[2020-06-12 12:00] VITALS: BP 124/73; PULSE 83; RESP 16; TEMP 37.4; O2SAT 98
[2020-06-12 12:37] LABS: Hematocrit 27.9 % (37.0-47.0); Hemoglobin 9.1 g/dL (12.0-15.0)
[2020-06-12] MEDS: DEXTROSE 5%/LACTATED RINGERS 1,000 ML 100 ML IV CONT ×3 (16:08→23:36)
[2020-06-12 19:40] VITALS: O2SAT 95
[2020-06-12] MEDS: ONDANSETRON INJ 4 MG/2 ML VIAL IV PUSH (20:31)
[2020-06-12 20:34] VITALS: BP 130/68; PULSE 91; RESP 16; TEMP 38.2; O2SAT 95
[2020-06-12] MEDS: SIMVASTATIN 20 MG TABLET 40 MG PO (20:35)
[2020-06-13] MEDS: HYDROcodone/acetaminophen (*CRX) 5-325 MG TABLET 1 TAB PO (00:25)
[2020-06-13 06:00] VITALS: BP 151/89; PULSE 93; RESP 16; TEMP 36.7; O2SAT 98
[2020-06-13 06:45] LABS: Basophils Percent Auto 0.2 % (0.2-1.2); Eosinophils Absolute Auto 0.5 K/mm3 (0-0.3); Eosinophils Percent Auto 4.2 % (0-4.4); Hematocrit 27.5 % (37.0-47.0); Hemoglobin 8.8 g/dL (12.0-15.0); Immature Granulocyte Absolute 0.06 K/mm3 (0.00-0.031); Immature Granulocyte Percent A 0.5 % (0-0.5); Lymphocytes Percent Auto 17.1 % (18.3-44.2); Mean Corpuscular Hemoglobin 28.9 pg (26-34); Mean Corpuscular Volume 90.2 fl (80-100); Mean Platelet Volume 11.1 fl (7.4-10.4); Monocytes Absolute Auto 1.1 K/mm3 (0.1-0.6); Monocytes Percent Auto 9.3 % (2.6-8.5); Neutrophils Absolute Auto 8.4 K/mm3 (1.3-6.7); Neutrophils Percent Auto 68.7 % (45.5-73.1); Platelet Count Result 156 k/mm3 (150-375); Red Blood Count 3.05 M/mm3 (4.2-5.4); Red Cell Distribution Width 11.9 % (11.5-14.5); White Blood Count 12.3 K/mm3 (4.5-10.0)
[2020-06-13] MEDS: CEPHALEXIN 500 MG CAPSULE PO ×3 (06:53→18:45)
[2020-06-13] MEDS: HYDROcodone/acetaminophen (*CRX) 5-325 MG TABLET 2 TAB PO ×3 (06:53→20:59)
[2020-06-13 07:05] LABS: Anion Gap 2 mmol/L (8-16); Blood Urea Nitrogen 11 mg/dL (7-17); Carbon Dioxide 32 mmol/L (22-30); Chloride 101 mmol/L (98-107); Estimated CRCL calculation 53 ml/min; Estimated Glomerular Filt Rate 52; Glucose 122 mg/dL (65-105); Sodium 135 mmol/L (137-145)
[2020-06-13 08:00] VITALS: PULSE 93; RESP 16; O2SAT 98
--- NOTE | 2020-06-13 09:10 | WPDUROPN2 ---
Progress Note: A&P Assessment and Plan (1) Hypertension: Code(s): I10 - Essential (primary) hypertension Status: Acute Assessment and Plan: Patient c/o SOB and chest pain, will consult with medicine to assess further. She also c/o scapular pain which is common after robotic or laparoscopy procedures d/t gas placed in the abdomen, this should resolve on its own in a few days. (2) Right renal mass: Code(s): N28.89 - Other specified disorders of kidney and ureter Status: Acute Assessment and Plan: Will continue to monitor MATTHEW output, otherwise incisions are healing nicely. MATTHEW drain will stay in at this time, d/t increased outuput over night. Subjective Subjective Date/Time Seen: 06/13/20 09:10 Post Op day: 3 (Robotic assisted right partial nephrectomy) Principal diagnosis: renal cell carcinoma Interval history: postoperative day 3. Was feeling much better last night, but this morning has developed dizziness, chest pain and shortness of breath. White count has improved to 12,000 thousand. Hemodynamically stable. Right flank pain has decreased. MATTHEW drain output has increased, bryant was removed, she is urinating on her own. She had an episode of hypotension yesterday, but medicine saw her and attributed to fluid loss from her recent surgery and gave her a bolus of IV fluids which she responded to nicely, they also held her BP meds. Review of Systems Cardiovascular: Cardiovascular: Reports chest pain and Reports chest pain with activity Respiratory: Respiratory: Reports dyspnea Gastrointestinal: Gastrointestinal: Reports abdominal pain (at incision sites only, she also c/o scapular pain), Denies nausea and Denies vomiting Genitourinary: Genitourinary: Denies hematuria and Denies dysuria Exam Resp: Effort & Inspection: abnormal respiratory pattern Cardio: Rate: regular rate GI: Inspection: incision (MATTHEW drain is draining serosanguinous drainage) GI Palp: Yes Soft to palpation and Yes Tenderness to palpation present (GI) (at incisions, all are well approximated, no drainage or edema present) : General: Yes no CVA tenderness Extrem: General: no edema Objective Data Vital Signs Vital Signs: Vital Signs - 24 hr 06/12/20 12:00 06/12/20 19:40 06/12/20 20:34 Temperature 99.4 F 100.7 F H Pulse Rate 83 91 Respiratory Rate 16 16 Blood Pressure 124/73 130/68 Pulse Oximetry 98 95 95 06/13/20 06:00 Temperature 98.1 F Pulse Rate 93 Respiratory Rate 16 Blood Pressure 151/89 H Pulse Oximetry 98 Intake/Output Intake/Output: Intake & Output 06/10/20 06/11/20 06/12/20 06/13/20 23:59 23:59 23:59 23:59 Intake Total 900 5765 6720 600 Output Total 490 4705 1565 1900 Balance 410 1060 5155 -1300 Meds/Results Medications: Active Medications Generic Name Dose Route Start Last Admin Trade Name Freq PRN Reason Stop Dose Admin Hydrocodone Bitart/Acetaminophen 1 tab 06/11/20 05:00 06/13/20 00:25 Hydrocodone/Acetaminophen (*Crx) 5-325 Mg Tablet PO 1 tab Q4H PRN Administration Pain Rated 1-3 Hydrocodone Bitart/Acetaminophen 2 tab 06/11/20 05:00 06/13/20 06:53 Hydrocodone/Acetaminophen (*Crx) 5-325 Mg Tablet PO 2 tab Q4H PRN Administration Pain Rated 4-6 Amlodipine Besylate 5 mg 06/11/20 09:00 06/12/20 12:44 Amlodipine Besylate 5 Mg Tablet PO Not Given QAM GUNNER Cephalexin HCl 500 mg 06/11/20 18:00 06/13/20 06:53 Keflex Capsule PO 500 mg Q6HR GUNNER Administration Docusate Sodium 100 mg 06/10/20 17:00 06/12/20 17:42 Colace Capsule PO Not Given BID GUNNER Hydrochlorothiazide 12.5 mg 06/11/20 09:00 06/12/20 12:45 Hydrochlorothiazide 12.5 Mg Capsule PO 07/11/20 09:01 Not Given QAM GUNNER Hydromorphone HCl 0.5 mg 06/10/20 15:38 06/11/20 09:19 Dilaudid Inj IV PUSH 0.5 mg Q4H PRN Administration Pain Rated 7-10 Dextrose/Lactated Ringer's 1,000 mls @ 150 mls/hr 06/10/20 15:38 06/13/20 05:15 Dextr
[2020-06-13] MEDS: METOPROLOL SUCCINATE EXT REL 50 MG TABCR PO (10:59)
[2020-06-13] MEDS: DEXTROSE 5%/LACTATED RINGERS 1,000 ML 100 ML IV CONT ×2 (10:59→21:00)
[2020-06-13] MEDS: DOCUSATE SODIUM 100 MG CAPSULE PO ×2 (10:59→16:27)
[2020-06-13 15:26] VITALS: BP 135/65; PULSE 89; RESP 18; TEMP 37.2; O2SAT 99
--- NOTE | 2020-06-13 16:28 | PM.IMPN ---
Progress Note: A&P Assessment and Plan (1) Hypertension: Code(s): I10 - Essential (primary) hypertension Status: Acute Assessment and Plan: blood pressure low am 06/12. and responded to fluid bolus. thought secondary to recent surgery and possibly some blood loss. 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 and with blood pressure rebounding restarted ASTER-inhibitor and nitrate ,continue to hold diuretic. (2) Renal cell carcinoma: Code(s): C64.9 - Malignant neoplasm of unspecified kidney, except renal pelvis Status: Acute Assessment and Plan: pathology of lesion displays containment within the kidney and margins free of disease (3) Hyperlipidemia: Code(s): E78.5 - Hyperlipidemia, unspecified Status: Acute Assessment and Plan: continue her statin and ezetimibe. (4) DVT prophylaxis: Code(s): Z29.9 - Encounter for prophylactic measures, unspecified Status: Acute Assessment and Plan: mechanical per urology (5) Chest pain: Code(s): R07.9 - Chest pain, unspecified Status: Acute Assessment and Plan: pleuritic chest pain may have been secondary to the recent robotic surgery or but with a shortness of breath CTA was performed which revealed no pulmonary emboli or infiltrates chest the atelectasis. Continue incentive spirometry and encourage mobilization (6) Postoperative anemia due to acute blood loss: Code(s): D62 - Acute posthemorrhagic anemia Status: Acute Assessment and Plan: hemoglobin stable at 8.8 and continue to monitor Subjective Date/time seen: 06/13/20 16:28 Interval history: date of visit 06/13. 55-year-old hypertensive white female cystitis post right partial nephrectomy 06/10 who was hypotensive a.m. 06/12. Some of her antihypertensive were held and she received 1 L bolus of fluids and responded well. This a.m. she developed chest and right-sided pleuritic pain radiating to her back. She felt short of breath Although no documented pulse ox before oxygen was placed. Exam Narrative: Exam Narrative: blood pressure 150/86 left arm lying pulse is 72 and regular she is afebrile pupils equal reactive light sclera anicteric neck supple no adenopathy thyromegaly and I hear no carotid bruits lungs clear CV regular rate rhythm faint systolic ejection murmur abdomen is soft obese bowel sounds are present extremities without edema dorsalis pedis posterior tibial 2+ Objective Data Vital Signs Vital Signs: Vital Signs - 24 hr 06/12/20 19:40 06/12/20 20:34 06/13/20 06:00 Temperature 38.2 C H 36.7 C Pulse Rate 91 93 Respiratory Rate 16 16 Blood Pressure 130/68 151/89 H Pulse Oximetry 95 95 98 06/13/20 08:00 06/13/20 15:26 Temperature 37.2 C Pulse Rate 93 89 Respiratory Rate 16 18 Blood Pressure 135/65 Pulse Oximetry 98 99 Intake/Output Intake/Output: Intake & Output 06/10/20 06/11/20 06/12/20 06/13/20 23:59 23:59 23:59 23:59 Intake Total 900 5765 6720 1960 Output Total 490 4705 1565 1900 Balance 410 1060 5155 60 Meds/Results Medications: Active Medications Generic Name Dose Route Start Last Admin Trade Name Freq PRN Reason Stop Dose Admin Hydrocodone Bitart/Acetaminophen 1 tab 06/11/20 05:00 06/13/20 00:25 Hydrocodone/Acetaminophen (*Crx) 5-325 Mg Tablet PO 1 tab Q4H PRN Administration Pain Rated 1-3 Hydrocodone Bitart/Acetaminophen 2 tab 06/11/20 05:00 06/13/20 14:50 Hydrocodone/Acetaminophen (*Crx) 5-325 Mg Tablet PO 2 tab Q4H PRN Administration Pain Rated 4-6 Amlodipine Besylate 5 mg 06/11/20 09:00 06/12/20 12:44 Amlodipine Besylate 5 Mg Tablet PO Not Given QAM GUNNER Cephalexin HCl 500 mg 06/11/20 18:00 06/13/20 13:45 Keflex Capsule PO 500 mg Q6HR GUNNER Administration Docusate Sodium 100
[2020-06-13] MEDS: SIMVASTATIN 20 MG TABLET 40 MG PO (20:58)
[2020-06-13 22:00] VITALS: BP 137/76; PULSE 86; RESP 16; TEMP 37.8; O2SAT 97
[2020-06-14] MEDS: CEPHALEXIN 500 MG CAPSULE PO ×3 (00:52→12:52)
[2020-06-14] MEDS: HYDROcodone/acetaminophen (*CRX) 5-325 MG TABLET 2 TAB PO ×2 (00:53→12:49)
[2020-06-14 04:59] LABS: Basophils Percent Auto 0.4 % (0.2-1.2); Eosinophils Absolute Auto 0.5 K/mm3 (0-0.3); Eosinophils Percent Auto 5.5 % (0-4.4); Hematocrit 28.4 % (37.0-47.0); Hemoglobin 9.2 g/dL (12.0-15.0); Immature Granulocyte Absolute 0.05 K/mm3 (0.00-0.031); Immature Granulocyte Percent A 0.5 % (0-0.5); Lymphocytes Absolute Auto 2.09 K/mm3 (0.9-3.2); Mean Corpuscular HGB Conc 32.4 g/dl (32-36); Mean Corpuscular Hemoglobin 29.4 pg (26-34); Mean Corpuscular Volume 90.7 fl (80-100); Mean Platelet Volume 11.4 fl (7.4-10.4); Monocytes Absolute Auto 0.9 K/mm3 (0.1-0.6); Monocytes Percent Auto 9.5 % (2.6-8.5); Neutrophils Absolute Auto 5.9 K/mm3 (1.3-6.7); Neutrophils Percent Auto 62.1 % (45.5-73.1); Platelet Count Result 196 k/mm3 (150-375); Red Blood Count 3.13 M/mm3 (4.2-5.4); Red Cell Distribution Width 11.9 % (11.5-14.5); White Blood Count 9.5 K/mm3 (4.5-10.0)
[2020-06-14 05:22] LABS: Anion Gap 5 mmol/L (8-16); Blood Urea Nitrogen 9 mg/dL (7-17); Calcium 8.2 mg/dL (8.4-10.2); Carbon Dioxide 32 mmol/L (22-30); Chloride 102 mmol/L (98-107); Estimated CRCL calculation 53 ml/min; Estimated Glomerular Filt Rate 52; Glucose 117 mg/dL (65-105); Potassium 3.9 mmol/L (3.4-5.0); Sodium 139 mmol/L (137-145)
[2020-06-14 06:00] VITALS: BP 152/82; PULSE 84; RESP 16; TEMP 36.7; O2SAT 96
[2020-06-14] MEDS: HYDROcodone/acetaminophen (*CRX) 5-325 MG TABLET 1 TAB PO (06:00)
[2020-06-14] MEDS: DEXTROSE 5%/LACTATED RINGERS 1,000 ML 150 ML IV CONT (07:48)
[2020-06-14 08:00] VITALS: PULSE 80; RESP 16; O2SAT 96
[2020-06-14 09:24] VITALS: PULSE 80
[2020-06-14] MEDS: DOCUSATE SODIUM 100 MG CAPSULE PO (09:24)
[2020-06-14] MEDS: lisinopriL 10 MG TABLET PO (09:24)
[2020-06-14] MEDS: ISOSORBIDE MONONITRATE 30 MG TAB.ER.24H PO (09:24)
[2020-06-14] MEDS: METOPROLOL SUCCINATE EXT REL 50 MG TABCR PO (09:24)
--- NOTE | 2020-06-14 11:33 | WPDUROPN2 ---
Progress Note: A&P Additional Plan Doing well after partial nephrectomy. Drain removed. OK for discharge to home pending resolution of medicine consult. Subjective Subjective Date/Time Seen: 06/14/20 11:33 Interval history: Doing well. pain improved. Feels ready to go home Exam Narrative: Exam Narrative: Well in NAD. Abd soft, NT/ND Objective Data Vital Signs Vital Signs: Vital Signs - 24 hr 06/13/20 15:26 06/13/20 22:00 06/14/20 06:00 Temperature 37.2 C 37.8 C H 36.7 C Pulse Rate 89 86 84 Respiratory Rate 18 16 16 Blood Pressure 135/65 137/76 152/82 H Pulse Oximetry 99 97 96 06/14/20 08:00 06/14/20 09:24 Temperature Pulse Rate 80 80 Respiratory Rate 16 Blood Pressure Pulse Oximetry 96 Intake/Output Intake/Output: Intake & Output 06/11/20 06/12/20 06/13/20 06/14/20 23:59 23:59 23:59 23:59 Intake Total 5765 6720 3200 1550 Output Total 4705 1565 2500 2190 Balance 1060 5155 700 -640 Meds/Results Medications: Active Medications Generic Name Dose Route Start Last Admin Trade Name Freq PRN Reason Stop Dose Admin Hydrocodone Bitart/Acetaminophen 1 tab 06/11/20 05:00 06/14/20 06:00 Hydrocodone/Acetaminophen (*Crx) 5-325 Mg Tablet PO 1 tab Q4H PRN Administration Pain Rated 1-3 Hydrocodone Bitart/Acetaminophen 2 tab 06/11/20 05:00 06/14/20 00:53 Hydrocodone/Acetaminophen (*Crx) 5-325 Mg Tablet PO 2 tab Q4H PRN Administration Pain Rated 4-6 Amlodipine Besylate 5 mg 06/11/20 09:00 06/12/20 12:44 Amlodipine Besylate 5 Mg Tablet PO Not Given QAM GUNNER Cephalexin HCl 500 mg 06/11/20 18:00 06/14/20 06:00 Keflex Capsule PO 500 mg Q6HR GUNNER Administration Docusate Sodium 100 mg 06/10/20 17:00 06/14/20 09:24 Colace Capsule PO 100 mg BID GUNNER Administration Hydrochlorothiazide 12.5 mg 06/11/20 09:00 06/12/20 12:45 Hydrochlorothiazide 12.5 Mg Capsule PO 07/11/20 09:01 Not Given QA GUNNER Hydromorphone HCl 0.5 mg 06/10/20 15:38 06/11/20 09:19 Dilaudid Inj IV PUSH 0.5 mg Q4H PRN Administration Pain Rated 7-10 Dextrose/Lactated Ringer's 1,000 mls @ 150 mls/hr 06/10/20 15:38 06/14/20 07:48 Dextrose 5%/Lactated Ringers IV CONT 150 mls/hr .Q6H40M [facility] Administration Isosorbide Mononitrate 30 mg 06/11/20 09:00 06/14/20 09:24 Isosorbide Mononitrate 30 Mg Tab.Er.24h PO 30 mg QAM [facility] Administration Lisinopril 10 mg 06/11/20 09:00 06/14/20 09:24 Lisinopril 10 Mg Tablet [facility] Administration Metoprolol Succinate 50 mg 06/11/20 09:00 06/14/20 09:24 Toprol Xl PO 50 mg [facility] Administration Morphine Sulfate 1 mg 06/10/20 15:38 06/10/20 17:34 Morphine Sulfate Inj (*Crx) IV PUSH 1 mg Q2H PRN Administration Pain Rated 4-6 Naloxone HCl 0.1 mg 06/10/20 15:38 Narcan IV PUSH Q2M PRN Opiate Reversal Ondansetron HCl 4 mg 06/10/20 15:38 06/12/20 20:31 Zofran Inj IV PUSH 4 mg Q6H PRN Administration Nausea And Vomiting Simvastatin 40 mg 06/10/20 21:00 06/13/20 20:58 Zocor PO 40 mg HS [facility] Administration Spironolactone 25 mg 06/11/20 09:00 06/12/20 12:47 Spironolactone 25 Mg Tablet PO Not Given [facility] Radiology Results: ITS Impressions Chest CTA 06/13/20 10:19 IMPRESSION: 1. No pulmonary embolism. 2. Small lung volumes with small bilateral pleural effusions and dependent compressive atelectasis in the bilateral lower lobes. 3. Postoperative changes of partial right nephrectomy. Labs Labs: Laboratory Results - last 24 hr 06/14/20 06/14/20 04:21 04:21 WBC 9.5 RBC 3.13 L Hgb 9.2 L Hct 28.4 L MCV 90.7 MCH 29.4 MCHC 32.4 RDW 11.9 Plt Count 196 MPV 11.4 H Immature Gran % (Auto) 0.5 Neut % (Auto) 62.1 Lymph % (Auto) 22.0 Bartholomew % (Auto) 9.5 H Eos % (Auto) 5.5 H Baso % (Auto) 0.4 Lymph # (Auto) 2.09 Bartholomew # (Auto) 0.9 H Eos # (Auto) 0.5 H Ba
--- NOTE | 2020-06-14 15:54 | PM.IMPN ---
Progress Note: A&P Assessment and Plan (1) Hypertension: Code(s): I10 - Essential (primary) hypertension Status: Acute Assessment and Plan: blood pressure low am 06/12. and responded to fluid bolus. thought secondary to recent surgery and possibly some blood loss. 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 and with blood pressure rebounding restarted ASTER-inhibitor and nitrate , restart all on d/c (2) Renal cell carcinoma: Code(s): C64.9 - Malignant neoplasm of unspecified kidney, except renal pelvis Status: Acute Assessment and Plan: pathology of lesion displays containment within the kidney and margins free of disease (3) Hyperlipidemia: Code(s): E78.5 - Hyperlipidemia, unspecified Status: Acute Assessment and Plan: continue her statin and ezetimibe. (4) DVT prophylaxis: Code(s): Z29.9 - Encounter for prophylactic measures, unspecified Status: Acute Assessment and Plan: mechanical per urology (5) Chest pain: Code(s): R07.9 - Chest pain, unspecified Status: Acute Assessment and Plan: pleuritic chest pain may have been secondary to the recent robotic surgery or but with a shortness of breath CTA was performed which revealed no pulmonary emboli or infiltrates chest the atelectasis. Continue incentive spirometry and encourage mobilization (6) Postoperative anemia due to acute blood loss: Code(s): D62 - Acute posthemorrhagic anemia Status: Acute Assessment and Plan: hemoglobin stable at 9.2 and continue to monitor stable for d/c medically now Subjective Date/time seen: 06/14/20 15:54 Interval history: date of visit . 55-year-old hypertensive white female cystitis post right partial nephrectomy 06/10 who was hypotensive a.m. 06/12. Some of her antihypertensive were held and she received 1 L bolus of fluids and responded well. a.m. 06/13 had chest pain with shortness breath and CTA of the chest showed atelectasis only. feels better this a.m. been up and ambulating and no shortness of breath Exam Narrative: Exam Narrative: blood pressure 152/82 left arm lying pulse is 84 and regular she is afebrile pupils equal reactive light sclera anicteric neck supple no adenopathy thyromegaly and I hear no carotid bruits lungs clear CV regular rate rhythm faint systolic ejection murmur abdomen is soft obese bowel sounds are present extremities without edema dorsalis pedis posterior tibial 2+ Objective Data Vital Signs Vital Signs: Vital Signs - 24 hr 06/13/20 22:00 06/14/20 06:00 06/14/20 08:00 Temperature 37.8 C H 36.7 C Pulse Rate 86 84 80 Respiratory Rate 16 16 16 Blood Pressure 137/76 152/82 H Pulse Oximetry 97 96 96 06/14/20 09:24 Temperature Pulse Rate 80 Respiratory Rate Blood Pressure Pulse Oximetry Intake/Output Intake/Output: Intake & Output 06/11/20 06/12/20 06/13/20 06/14/20 23:59 23:59 23:59 23:59 Intake Total 5765 6720 3200 2040 Output Total 4705 1565 2500 3340 Balance 1060 5155 700 -1300 Meds/Results Radiology Results: ITS Impressions Chest CTA 06/13/20 10:19 IMPRESSION: 1. No pulmonary embolism. 2. Small lung volumes with small bilateral pleural effusions and dependent compressive atelectasis in the bilateral lower lobes. 3. Postoperative changes of partial right nephrectomy. Labs Labs: Laboratory Results - last 24 hr 06/14/20 06/14/20 04:21 04:21 WBC 9.5 RBC 3.13 L Hgb 9.2 L Hct 28.4 L MCV 90.7 MCH 29.4 MCHC 32.4 RDW 11.9 Plt Count 196 MPV 11.4 H Immature Gran % (Auto) 0.5 Neut % (Auto) 62.1 Lymph % (Auto) 22.0 [place] % (Auto) 9.5 H Eos % (Auto) 5.5 H Baso % (Auto) 0.4 Lymph # (Auto) 2.09 [place] # (Auto) 0.9 H Eos # (Auto) 0.5 H Baso # (Auto) 0.0 Abs Immat Gran (auto
--- NOTE | 2020-08-13 12:25 | PM.DS ---
DS: Admitting Diagnosis Admitting Diagnosis Admitting Diagnosis: Right Renal Mass DS: Discharge Diagnosis Discharge Diagnosis (1) Renal cell carcinoma: Code(s): C64.9 - Malignant neoplasm of unspecified kidney, except renal pelvis Status: Acute DS: Summary Time Spent with Patient Time attestation: Total time spent providing and/or coordinating discharge services: Sofya had an uneventful right partial nephrectomy on 06/10/2020. Postoperatively she did well. Patient is tolerating a diet and ambulating without any issues. She will be discharged to home. Condition is stable. She will follow-up as previously instructed. DS: Data Data Completed and Pending Completed studies during hospitalization: Pending at discharge 06/10/20 11:17 Surgical [PTH] Routine Surgical [PTH] Routine Discharge Plan Discharge Attending physician on discharge: Lionel Billingsley Consulting providers: Jim Read ; Sherry Way ; Shlomo Gonsales Discharging Clinician: kavita Anticipated Discharge Date/Time: 06/14/20 11:35 Patient Disposition: Home, Self-Care Activity: may shower Diet: as tolerated Wound Care Instructions: keep dressing dry Discharge Instructions: Can remove dressing in 2 days Patient Instructions: Antibiotic Form Stand Alone Forms: General Discharge Information Follow-up/Referrals: Lionel Billingsley MD [Physician] - Discharge Medications: New hydrocodone-acetaminophen 5-325 mg Tablet 2 tab PO Q4H PRN (Reason: Pain Rated 4-6) Qty: 20 RF: 0 Continued metoprolol succinate 50 mg Tablet Extended Release 24 Hr 50 mg PO QAM RF: 0 isosorbide mononitrate 30 mg tablet extended release 24 hr 30 mg PO QAM RF: 0 spironolactone [Aldactone] 25 mg Tablet 25 mg PO QAM RF: 0 simvastatin 40 mg Tablet 40 mg PO HS RF: 0 lisinopril-hydrochlorothiazide 10-12.5 mg tablet 1 tablet PO QAM RF: 0 ezetimibe [Zetia] 10 mg Tablet 10 mg PO QAM RF: 0 amlodipine 5 mg tablet 5 mg PO QAM RF: 0 aspirin 81 mg Tablet,Delayed Release (Dr/Ec) 81 mg PO DAILY RF: 0 Date of admission: 06/10/20 16:09 Admitting Provider: Katsikas,Lionel A. Attending physician on admission: Mateo Gonzalez
== END 2020-06-14 14:20 | disposition home or self-care (01) | DRG 657 ==
LOC: ANH3MEDSUR 06-14 11:39
PROVIDERS: Internal Medicine; Nurse Practitioner Adult Health; Admitting Provider Urology; Visit Provider Urology
PROC: 0TB04ZZ Excision of Right Kidney, Percutaneous Endoscopic Approach (ICD-10-PCS; CPT 50543; principal; 2020-06-10 07:30)
DX: C64.9 Malignant neoplasm of unspecified kidney, except renal pelvis; D62 Acute posthemorrhagic anemia; R07.81 Pleurodynia; I25.10 Atherosclerotic heart disease of native coronary artery without angina pectoris; E78.5 Hyperlipidemia, unspecified; I10 Essential (primary) hypertension; I65.22 Occlusion and stenosis of left carotid artery; Z23 Encounter for immunization; Z79.899 Other long term (current) drug therapy; Z85.850 Personal history of malignant neoplasm of thyroid; Z86.73 Personal history of transient ischemic attack (TIA), and cerebral infarction without residual deficits; Z88.1 Allergy status to other antibiotic agents; Z88.8 Allergy status to other drugs, medicaments and biological substances
CPT/HCPCS: 36415; 71275; 80048; 85014; 85018; 85025; 85027; 86850; 86900; 86901; 88304; 90471; 90653; A9270; G0008; J0131; J0690; J1100; J1170; J2150; J2250; J2270; J2370; J2405; J2704; J2710; J3010; J7030; J7120; J7121; Q9967

== ENCOUNTER 2020-10-29 08:38 | Outpatient (CLI) | payer BC, SELFPAY ==
--- NOTE | ~2020-10-29 | CT_ITS ---
EXAMINATION: CT abdomen pelvis wo/w con EXAM DATE: 10/29/2020 09:20 INDICATION: Kidney cancer. TECHNIQUE: Spiral CT of the abdomen without contrast followed by both abdomen and pelvis with 100 cc intravenous Omnipaque 350. Axial, coronal and sagittal images were reviewed. The dose-length produc t (DLP) for this examination was 1892.67 mGy-cm. The exposure was tailored according to patient size (auto mA exposure control), and iterative reconstruction (ASIR) was used as additional dose reductio n technique. Comparison is made to prior examination from 04/18/2020. FINDINGS: The liver, spleen, adrenal glands and pancreas are unremarkable. There are cholecystectomy clips. Surgical changes from interval partial right nephrectomy or cryoablation along the anterior cortex, subsequent scarring. No evidence of recurrence. Kidneys enhance symmetrically. No hydronephro sis. The uterus is not identified and has likely been surgically resected. There is chronic right ovarian cystic lesion measuring 5.4 cm, unchanged. No evidence of mural nodule or complexity. Can't exclude cystic ovarian neoplasm but would most likely be benign giving imaging appearance and stability. Bladder wall mildly thickened with enhancing mucosa, possible cystitis. Th ere is no retroperitoneal or pelvic lymphadenopathy. There is mild scattered arteriosclerotic disea se. There are no findings to suggest appendicitis. The stomach and small bowel are unremarkable. There is expected amount of colonic stool. No free intraperitoneal gas. The heart is normal in size. T here are no pericardial or pleural effusions. The lung bases are unremarkable. There are no osteobl astic or osteolytic lesions identified. IMPRESSION: 1. Right renal scarring. No evidence recurrence or metastatic disease. 2. Chronic right adnexal cystic lesion unchanged. Most likely benign histology. 3. Possible cystitis. Any urinary symptoms? Reviewed, dictated and finalized at location B. NIC PREPARATION ANALYST IMPRESSION: 1. Right renal scarring. No evidence recurrence or metastatic disease. 2. Chronic right adnexal cystic lesion unchanged. Most likely benign histology . 3. Possible cystitis. Any urinary symptoms?
[2020-10-29 09:10] LABS: Estimated Glomerular Filt Rate > 60
== END 2020-10-29 08:39 | disposition home or self-care (01) ==
PROVIDERS: Visit Provider Urology
DX: C64.1 Malignant neoplasm of right kidney, except renal pelvis (principal)
CPT/HCPCS: 74178; Q9967